=== PATIENT | female | born 1990 | race Caucasian/White ===

== ENCOUNTER 2017-07-03 01:29 | Outpatient (CLI) | payer BC ==
[~2017-07-03] VITALS: Ht 157.5 cm; Wt 79.4 kg
[~2017-07-03 01:29] MED LIST: CYCL10TA45 GT; FLUO40CA PO
[2017-07-03 01:40] VITALS: BP 155/87
[2017-07-03] MEDS ORDERED: PREN-142 PO (01:45)
[2017-07-03] MEDS ORDERED: D5 LR IV SOLUTION 1,000 ML IV ONE (02:00)
[2017-07-03] MEDS ORDERED: ONDANSETRON 4 MG/2 ML (SDV) Z0FRAN IVP ONE (02:15)
[2017-07-03 04:14] VITALS: BP 147/85
[2017-07-03] MEDS: D5 LR IV SOLUTION 1,000 ML IV SCH ×2 (04:29→11:10)
[2017-07-03 04:54] LABS: BASOPHILS % (AUTO) 0 % (0-10); EOSINOPHILS # (AUTO) 0.1 10^3/uL (0.0-0.3); EOSINOPHILS % (AUTO) 0 % (0-10); LYMPHOCYTES # (AUTO) 2.6 X 10^3 (1.0-4.0); LYMPHOCYTES % (AUTO) 15 % (12-44); MEAN CORPUSCULAR HEMOGLOBIN 25 PG (25-34); MEAN CORPUSCULAR HGB CONC 33 G/DL (32-36); MEAN CORPUSCULAR VOLUME 76 FL (80-99); MEAN PLATELET VOLUME 9.9 FL (7.4-10.4); MONOCYTES # (AUTO) 1.2 X 10^3 (0.0-1.0); MONOCYTES % (AUTO) 7 % (0-12); NEUTROPHILS # (AUTO) 13.4 X 10^3 (1.8-7.8); NEUTROPHILS % (AUTO) 77 % (42-75); PLATELET COUNT 346 10^3/uL (130-400); RED BLOOD COUNT 4.04 10^6/uL (4.35-5.85); RED CELL DISTRIBUTION WIDTH 13.9 % (10.0-14.5); WHITE BLOOD COUNT 17.3 10^3/uL (4.3-11.0)
[2017-07-03 05:13] LABS: ALANINE AMINOTRANSFERASE 18 U/L (0-55); ALBUMIN 3.3 GM/DL (3.2-4.5); ANION GAP 11 MMOL/L (5-14); ASPARTATE AMINO TRANSFERASE 19 U/L (5-34); BILIRUBIN,TOTAL 0.3 MG/DL (0.1-1.0); BLOOD UREA NITROGEN 5 MG/DL (7-18); BUN/CREATININE RATIO 8; CALCIUM 10.1 MG/DL (8.5-10.1); CARBON DIOXIDE 20 MMOL/L (21-32); CHLORIDE 108 MMOL/L (98-107); CREATININE SERUM 0.63 MG/DL (0.60-1.30); GFR ESTIMATED > 60; GLUCOSE 89 MG/DL (70-105); LACTATE DEHYDROGENASE 148 U/L (125-220); POTASSIUM 3.3 MMOL/L (3.6-5.0); SODIUM 139 MMOL/L (135-145); TOTAL PROTEIN 6.2 GM/DL (6.4-8.2); URIC ACID 4.4 MG/DL (2.6-7.2)
--- NOTE | 2017-07-03 07:42 | History & Physical ---
History and Physical Date Seen by Provider: Jul 03, 2017 Time Seen by Provider: 07:32 this patient is a 27-year-old A1 1 white female with a due date of September 04, 2017 putting her right at 31 weeks gestation. She presented with complaint of regular frequent contractions and pelvic pain and pressure nausea and vomiting. She was found be mariola about every 2 minutes although so far her cervix has not demonstrated any progressive change. She denies rupture membranes or bleeding she's had no other problems with this . Allergies are to Ambien which causes hallucinations Medications are vitamins Zyrtec and Percocet when necessary which was recently prescribed due to pelvic pain Medical social surgical and obstetric histories are per the antepartum record HEENT exam is normal Neck is supple no lymphadenopathy no thyromegaly Abdomen is gravid soft nontender nondistended. Suprapubic area is slightly tender on palpation. There is no guarding rebound or rigidity extremities show no clubbing cyanosis or edema. There is no Homans sign pelvic exam per the nurse shows a cervix that is thick and closed and no change on serial exams monitor initially was shown 45 to 60 second contractions every 2 minutes. Currently the monitor shows contractions about every 4-8 minutes the patient feels only occasionally. Vital Signs Date Time Temp Pulse Resp B/P (MAP) Pulse Ox O2 Delivery O2 Flow Rate FiO2 07/03/17 04:14 86 18 147/85 Room Air 07/03/17 01:40 98.7 113 20 155/87 Room Air lab work is as follows Laboratory Tests Test 07/03/17 04:48 Range/Units White Blood Count 17.3 H 4.3-11.0 10^3/uL Red Blood Count 4.04 L 4.35-5.85 10^6/uL Hemoglobin 10.0 L 11.5-16.0 G/DL Hematocrit 31 L 35-52 % Mean Corpuscular Volume 76 L 80-99 FL Mean Corpuscular Hemoglobin 25 25-34 PG Mean Corpuscular Hemoglobin Concent 33 32-36 G/DL Red Cell Distribution Width 13.9 10.0-14.5 % Platelet Count 346 130-400 10^3/uL Mean Platelet Volume 9.9 7.4-10.4 FL Neutrophils (%) (Auto) 77 H 42-75 % Lymphocytes (%) (Auto) 15 12-44 % Monocytes (%) (Auto) 7 0-12 % Eosinophils (%) (Auto) 0 0-10 % Basophils (%) (Auto) 0 0-10 % Neutrophils # (Auto) 13.4 H 1.8-7.8 X 10^3 Lymphocytes # (Auto) 2.6 1.0-4.0 X 10^3 Monocytes # (Auto) 1.2 H 0.0-1.0 X 10^3 Eosinophils # (Auto) 0.1 0.0-0.3 10^3/uL Basophils # (Auto) 0.0 0.0-0.1 10^3/uL Sodium Level 139 135-145 MMOL/L Potassium Level 3.3 L 3.6-5.0 MMOL/L Chloride Level 108 H 98-107 MMOL/L Carbon Dioxide Level 20 L 21-32 MMOL/L Anion Gap 11 5-14 MMOL/L Blood Urea Nitrogen 5 L 7-18 MG/DL Creatinine 0.63 0.60-1.30 MG/DL Estimat Glomerular Filtration Rate > 60 BUN/Creatinine Ratio 8 Glucose Level 89 70-105 MG/DL Uric Acid 4.4 2.6-7.2 MG/DL Calcium Level 10.1 8.5-10.1 MG/DL Total Bilirubin 0.3 0.1-1.0 MG/DL Aspartate Amino Transf (AST/SGOT) 19 5-34 U/L Alanine Aminotransferase (ALT/SGPT) 18 0-55 U/L Alkaline Phosphatase 91 40-136 U/L Lactate Dehydrogenase 148 125-220 U/L Total Protein 6.2 L 6.4-8.2 GM/DL Albumin 3.3 3.2-4.5 GM/DL Laboratory Tests 07/03/17 04:48 assessment and plan 31 weeks gestation with labor and leukocytosis. blood pressures have been slightly elevated, however her lab work is essentially reassuring. We will obtain a urine protein creatinine ratio. This patient's presentation is consistent with a likely viral GI syndrome. She has been improving with hydration and time. her contractions have begun easing and spacing out. Her appetite has returned. We will allow her to Eat and drink and continue the IV fluids. with continued improvement and continued resolution of her contractions we will plan on discharge home with follow-up in clinic - however if her contractions persist for her nausea persists then we will continue observation. Patient has had a previous and has been having increasing pain at the pubis. It is likely is normal physiology however there is concern for problems with uterine and/or abdominal wall scar close attention is warranted. we will obtain an ultrasound to evaluate the and the integrity of the uterus labor Allergies and Home Medications Allergies Coded Allergies: zolpidem tartrate (Verified Allergy, Intermediate, 03/19/13) adhesive (Verified Allergy, Unknown, 01/20/08) Home Medications Vit No.124/Iron/FA 1 Each Tablet, 1 EACH PO DAILY, (Reported) CONNER FORTUNE MD Jul 03, 2017 7:42 am
[2017-07-03 09:00] VITALS: BP 140/80
[2017-07-03 09:14] LABS: BILIRUBIN,URINE NEGATIVE (NEGATIVE); KETONES,URINE NEGATIVE (NEGATIVE); LEUKOCYTE ESTERASE ,URINE NEGATIVE (NEGATIVE); NITRITE,URINE NEGATIVE (NEGATIVE); PH,URINE 8 (5-9); PROTEIN,URINE NEGATIVE (NEGATIVE); UROBILINOGEN,URINE NORMAL (NORMAL)
[2017-07-03] MEDS ORDERED: INDOMETHACIN 25 MG (INDOCIN) CAP PO NR (09:15)
[2017-07-03 09:25] LABS: SQUAMOUS EPITHELIAL CELL,UR 0-2 /HPF
--- NOTE | 2017-07-03 11:10 | Diagnostic Imaging Report ---
OB ultrasound. INDICATION: Pain and contractions. Check placental location and previous uterine scar. FINDINGS: heart rate is 136 beats per minutes. presentation is cephalic. Total NIDIA is 16. The placenta is fundal. The uterine scar is not visible on this exam. No placenta previa. Total biophysical profile score is 8 out of 8. IMPRESSION: Total biophysical profile score is 8 out of 8. Dictated by: Dictated on workstation # [id number]
--- NOTE | 2017-07-04 15:03 | Physician Query-Final Dx ---
RONDA ALEJANDRA 07/04/17 1503: Clinic Account Progress/Dx Physician Query: Please give diagnosis Date of Service Jul 03, 2017 at 01:29 CONNER FORTUNE MD 07/05/17 0742: Clinic Account Progress/Dx DIAGNOSIS: Diagnosis false labor RONDA ALEJANDRA Jul 04, 2017 15:03 CONNER FORTUNE MD Jul 05, 2017 07:42
== END 2017-07-03 13:05 | disposition home or self-care (01) ==
LOC: WSo 01:29 → LDRP 01:31 → 3RD 09:04 → WSo 13:05
PROVIDERS: ATTEND Obstetrics & Gynecology
DX: O47.03 False labor before 37 completed weeks of gestation, third trimester (principal); Z3A.31 31 weeks gestation of pregnancy
CPT/HCPCS: 36415; 76819; 80053; 81000; 82570; 83615; 84156; 84550; 85025; 96361; 96374; 99214

== ENCOUNTER → 2017-07-16 | Outpatient (CLI) | payer BC ==
[~2017-07-16] MED LIST changes: +PREN-142 PO
== END ==
LOC: LABNPT 08:45
PROVIDERS: ATTEND Obstetrics & Gynecology
DX: O28.8 Other abnormal findings on antenatal screening of mother (principal); Z3A.00 Weeks of gestation of pregnancy not specified
CPT/HCPCS: 82570; 84156

== ENCOUNTER → 2017-08-01 | Outpatient (CLI) | payer BC, MEDICAID ==
[~2017-08-01] MED LIST changes: +OXYC-202 PO; +PNV11TAB5 PO
[2017-08-01 09:36] LABS: PROTEIN/CREATININE RATIO 0.21
== END ==
LOC: LABNPT 09:12
PROVIDERS: ATTEND Obstetrics & Gynecology
DX: O28.8 Other abnormal findings on antenatal screening of mother (principal)
CPT/HCPCS: 82570; 84156

== ENCOUNTER 2017-08-07 10:16 | Inpatient (IN) | payer BC, MEDICAID ==
[2017-08-07] VITALS (7 sets, daily range): BP systolic 135–147; BP diastolic 76–98
[~2017-08-07] VITALS: Ht 157.5 cm; Wt 82.7 kg
[~2017-08-07 10:16] MED LIST changes: +CITRIC ACID/SOB CIT (BICITRA) 30 ML UDC ONE; +FAMOTIDINE 20MG/2ML IV (PEPCID) ONE; +LACTATED RINGERS 1,000 ML IV ONE; +METOCLOPRAMIDE INJ 10 MG/2 ML (REGLAN) ONE; -PNV11TAB5 PO; +ceFAZolin 2 GM/50 ML NS 50 ML ONE; +metroNIDAZOLE 500MG/100ML IVPB 100 ML ONE
[2017-08-07] MEDS ORDERED: LACTATED RINGERS 1,000 ML IV PRN (10:44)
[2017-08-07] MEDS ORDERED: METOCLOPRAMIDE INJ 10 MG/2 ML (REGLAN) IV ONE (10:45)
[2017-08-07] MEDS ORDERED: CATHETER FLUSH 10 ML SYR IV PRN (10:45)
[2017-08-07] MEDS ORDERED: CITRIC ACID/SOB CIT (BICITRA) 30 ML UDC PO ONE (10:45)
[2017-08-07] MEDS ORDERED: FAMOTIDINE 20MG/2ML IV (PEPCID) IV ONE (10:45)
[2017-08-07 10:50] LABS: BASOPHILS % (AUTO) 0 % (0-10); EOSINOPHILS # (AUTO) 0.1 10^3/uL (0.0-0.3); EOSINOPHILS % (AUTO) 1 % (0-10); LYMPHOCYTES # (AUTO) 2.2 X 10^3 (1.0-4.0); LYMPHOCYTES % (AUTO) 19 % (12-44); MEAN CORPUSCULAR HEMOGLOBIN 22 PG (25-34); MEAN CORPUSCULAR HGB CONC 32 G/DL (32-36); MEAN CORPUSCULAR VOLUME 70 FL (80-99); MEAN PLATELET VOLUME 10.2 FL (7.4-10.4); MONOCYTES # (AUTO) 0.9 X 10^3 (0.0-1.0); MONOCYTES % (AUTO) 8 % (0-12); NEUTROPHILS # (AUTO) 8.7 X 10^3 (1.8-7.8); NEUTROPHILS % (AUTO) 73 % (42-75); PLATELET COUNT 356 10^3/uL (130-400); RED CELL DISTRIBUTION WIDTH 15.7 % (10.0-14.5)
[2017-08-07] MEDS ORDERED: PNV11TAB5 PO (11:00)
[2017-08-07 11:01] LABS: ALANINE AMINOTRANSFERASE 14 U/L (0-55); ALBUMIN 3.5 GM/DL (3.2-4.5); ANION GAP 10 MMOL/L (5-14); ASPARTATE AMINO TRANSFERASE 19 U/L (5-34); BILIRUBIN,TOTAL 0.4 MG/DL (0.1-1.0); BLOOD UREA NITROGEN 5 MG/DL (7-18); BUN/CREATININE RATIO 8; CALCIUM 9.8 MG/DL (8.5-10.1); CARBON DIOXIDE 19 MMOL/L (21-32); CHLORIDE 107 MMOL/L (98-107); GFR ESTIMATED > 60; GLUCOSE 76 MG/DL (70-105); LACTATE DEHYDROGENASE 178 U/L (125-220); POTASSIUM 3.6 MMOL/L (3.6-5.0); SODIUM 136 MMOL/L (135-145); TOTAL PROTEIN 6.5 GM/DL (6.4-8.2)
[2017-08-07] MEDS ORDERED: DEXAMETHASONE 10 MG/ML (DECADRON) 1 ML VIAL ONE (11:02)
[2017-08-07] MEDS ORDERED: ONDANSETRON 4 MG/2 ML (SDV) Z0FRAN ONE (11:02)
[2017-08-07] MEDS ORDERED: OXYTOCIN/NORMAL SALINE 500 ML IV ONE ×2 (11:02→12:31)
[2017-08-07 11:05] LABS: PROTEIN/CREATININE RATIO 0.17
[2017-08-07] MEDS ORDERED: fentaNYL INJECTION 100 MCG/2 ML AMP ONE (11:36)
[2017-08-07] MEDS ORDERED: morphine PF (DURAMORPH) 10 MG/10 ML AMP ONE (11:36)
[2017-08-07] MEDS ORDERED: OXYTOCIN/NORMAL SALINE 500 ML IV SCH (11:37)
--- NOTE | 2017-08-07 11:40 | Progress Note-Post Operative ---
Post-Operative Progess Note Surgeon (s)/Day Care Home Mother (s) Surgeon CONNER FORTUNE MD Day Care Home Mother: Leigh Duran RN Pre-Operative Diagnosis 36 week with labor and previous and PIH Post-Operative Diagnosis same Procedure & Operative Findings Date of Procedure 08/07/17 Procedure Performed/Findings repeat low transverse delivery - large uterine window Anesthesia Type spinal Estimated Blood Loss Estimated blood loss (mL): 450cc Specimens/Packing Specimens Removed placenta and umbilical cord Packing: none needed CONNER FORTUNE MD Aug 07, 2017 11:40
--- NOTE | 2017-08-07 11:44 | History & Physical ---
History and Physical Date Seen by Provider: Aug 07, 2017 Time Seen by Provider: 11:40 this patient is a 27-year-old A1 white female with an EDC of September 04, 2017 putting her now at 36 weeks gestation she presented to clinic for return OB today her blood pressure was 154/95 blood pressures have been progressively increasing over the last pelvic plus. He was found to be mariola regularly. Ultrasound U segment appeared to be paper thin. She was having a ring pulling and ripping sensation at the previous incision site she was sent to labor and delivery for evaluation and management. She has continued to contract about every 4 minutes or so. She complains of fairly sharp and persistent pain with the contractions at times she is writhing in pain. Her GBS culture was negative. She denies rupture membranes or bleeding. I Jesi test in my clinic was negative. She is prepared for repeat delivery. Allergies are to Ambien Medications are vitamins Past medical history, past surgical history, obstetric history, family history, and social histories are per the antepartum record HEENT exam is normal Neck is supple no lymphadenopathy no thyromegaly Abdomen gravid soft nontender nondistended Extreme show no clubbing cyanosis. There is no Homans sign. Gen. shows a cervix once immune dilated 50 percent effaced -1 station with vertex presentation. Lab work is as follows Laboratory Tests Test 08/07/17 10:15 08/07/17 10:30 Range/Units Urine Protein 8 6-12 MG/DL Urine Creatinine 47 30-125 MG/DL Urine Protein/Creatinine Ratio 0.17 White Blood Count 12.0 H 4.3-11.0 10^3/uL Red Blood Count 4.40 4.35-5.85 10^6/uL Hemoglobin 9.8 L 11.5-16.0 G/DL Hematocrit 31 L 35-52 % Mean Corpuscular Volume 70 L 80-99 FL Mean Corpuscular Hemoglobin 22 L 25-34 PG Mean Corpuscular Hemoglobin Concent 32 32-36 G/DL Red Cell Distribution Width 15.7 H 10.0-14.5 % Platelet Count 356 130-400 10^3/uL Mean Platelet Volume 10.2 7.4-10.4 FL Neutrophils (%) (Auto) 73 42-75 % Lymphocytes (%) (Auto) 19 12-44 % Monocytes (%) (Auto) 8 0-12 % Eosinophils (%) (Auto) 1 0-10 % Basophils (%) (Auto) 0 0-10 % Neutrophils # (Auto) 8.7 H 1.8-7.8 X 10^3 Lymphocytes # (Auto) 2.2 1.0-4.0 X 10^3 Monocytes # (Auto) 0.9 0.0-1.0 X 10^3 Eosinophils # (Auto) 0.1 0.0-0.3 10^3/uL Basophils # (Auto) 0.0 0.0-0.1 10^3/uL Sodium Level 136 135-145 MMOL/L Potassium Level 3.6 3.6-5.0 MMOL/L Chloride Level 107 98-107 MMOL/L Carbon Dioxide Level 19 L 21-32 MMOL/L Anion Gap 10 5-14 MMOL/L Blood Urea Nitrogen 5 L 7-18 MG/DL Creatinine 0.60 0.60-1.30 MG/DL Estimat Glomerular Filtration Rate > 60 BUN/Creatinine Ratio 8 Glucose Level 76 70-105 MG/DL Calcium Level 9.8 8.5-10.1 MG/DL Total Bilirubin 0.4 0.1-1.0 MG/DL Aspartate Amino Transf (AST/SGOT) 19 5-34 U/L Alanine Aminotransferase (ALT/SGPT) 14 0-55 U/L Alkaline Phosphatase 122 40-136 U/L Lactate Dehydrogenase 178 125-220 U/L Total Protein 6.5 6.4-8.2 GM/DL Albumin 3.5 3.2-4.5 GM/DL assessment and plan 36 week with previous and labor and PIH. Patient is to be taken now for repeat delivery. 36 week with PIH/ labor and previous Allergies and Home Medications Allergies Coded Allergies: zolpidem tartrate (Verified Allergy, Intermediate, 03/19/13) adhesive (Verified Allergy, Unknown, 01/20/08) Home Medications Oxycodone HCl/Acetaminophen 1 Each Tablet, 1 EACH PO Q6H PRN for PAIN-MILD TO MODERATE, (Reported) Dnm401/FA/Omega3/Dha/Fish Oil 1 Each Tab.chew, 2 EACH PO DAILY, (Reported) Clinical Quality Measures DVT/VTE Risk/Contraindication: Risk Factor Score Per Nursin RFS Level Per Nursing on Admit: 1=Low/No VTE PPX DEVIKA,CONNER G MD Aug 07, 2017 11:44 am
[2017-08-07] MEDS ORDERED: PROMETHAZINE INJ 25 MG/ML (PHENERGAN) AMP IM PRN (11:45)
[2017-08-07] MEDS ORDERED: TETANUS,DIPTH,PERTUSS P/F (BOOSTRIX) 0.5 ML VIAL IM ONE (11:45)
[2017-08-07] MEDS ORDERED: MEASLES,MUMPS,RUBELLA 1 EA INJ SC ONE (11:45)
[2017-08-07] MEDS ORDERED: D5 LR IV SOLUTION 1,000 ML IV ONE (11:45)
[2017-08-07] MEDS ORDERED: MEPERIDINE (DEMEROL) INJ 100 MG/ML IM PRN (11:45)
[2017-08-07] MEDS ORDERED: oxyCODONE/APAP 10/325MG (PERCOCET 10) TABLET PO PRN (11:45)
[2017-08-07] MEDS ORDERED: ceFAZolin 2 GM/50 ML NS 50 ML IV NR (12:00)
[2017-08-07] MEDS ORDERED: metroNIDAZOLE 500MG/100ML IVPB 100 ML IV NR (12:00)
[2017-08-07] MEDS ORDERED: KETOROLAC 30 MG/ML VIAL ONE (12:19)
[2017-08-07] MEDS ORDERED: PHENYLEPHRINE 100 MCG/ML 10 ML (ANESTHESIA) SYR ONE (12:29)
[2017-08-07] MEDS: KETOROLAC 30 MG/ML VIAL IVP SCH ×2 (12:30→18:28)
[2017-08-07] MEDS ORDERED: morphine PF (DURAMORPH) 10 MG/10 ML AMP INJ ONE (12:45)
[2017-08-07] MEDS ORDERED: NALOXONE 0.4 MG/ML 1 ML (NARCAN) VIAL IV PRN (12:45)
[2017-08-07] MEDS ORDERED: fentaNYL INJECTION 100 MCG/2 ML AMP INJ ONE (12:45)
[2017-08-07] MEDS: ONDANSETRON 4 MG/2 ML (SDV) Z0FRAN IV PRN ×2 (14:00→18:09)
[2017-08-07] MEDS ORDERED: ONDANSETRON 4 MG/2 ML (SDV) Z0FRAN IVP NR (18:30)
[2017-08-07] MEDS ORDERED: ONDANSETRON 4 MG/2 ML (SDV) Z0FRAN IVP PRN (18:30)
[2017-08-07] MEDS: DOCUSATE SODIUM 100 MG (COLACE) CAP PO SCH (20:14)
[2017-08-08] VITALS: BP 143/96
--- NOTE | 2017-08-08 01:07 | OPERATIVE REPORT ---
DATE OF SERVICE: 08/07/2017 PREOPERATIVE DIAGNOSES: A 36-week with labor, -induced hypertension and previous . POSTOPERATIVE DIAGNOSES: A 36-week with labor, -induced hypertension and previous with exceedingly large lower uterine segment, uterine window. OPERATIVE PROCEDURE: Repeat low transverse delivery of a viable female infant with Apgars of 7 and 9 at 1 and 5 minutes respectively. Weight is 6 pounds 6 ounces. Cord blood pH of 7.31 and a time of 12:20. OPERATIVE DESCRIPTION: With the patient in the supine position under satisfactory spinal anesthesia, she was prepped and draped in the usual fashion for abdominal surgery. Florez catheter was placed in the urinary bladder. A repeat Pfannenstiel incision made through the skin with a scalpel by removing the patient's previous Pfannenstiel incisional scar. The abdomen was entered in the usual manner. Bladder retractor was placed in position. A clean scalpel used to make a 2 cm hysterotomy incision in the midst of this large uterine window that was approximately 5 to 7 cm vertically and entirely across the lower uterine segment comprised only of membranes and peritoneum and in some areas the peritoneum had begun to separate and the membranes were bulging through already. Clear fluid was released on hysterotomy, the incision was extended bluntly. Olson forceps were applied to facilitate delivery of a vigorous viable female with stats as noted above. The was bulb suctioned on delivery of the head and again on completion of delivery. The umbilical cord was doubly clamped and infant passed to Dr. Portillo, job cost estimator in attendance for delivery. Cord bloods were obtained. The placenta delivered spontaneously Ritter. It was normal with a 3-vessel cord. The uterus was exteriorized, the interior wiped clean with a wet laparotomy sponge. Uterine incision closed with a running lock suture of 2-0 Vicryl. Care was taken to get back to good muscle edges for reapproximation of the lower uterine segment. The uterus was now returned to abdominal cavity. All blood clot and debris removed from the abdominal cavity. With sponge and needle counts correct, hemostasis assured. The anterior parietal peritoneum was closed with a running suture of 2-0 Vicryl. Rectus muscles were closed with that suture as well. The rectus fascia was closed with 2-0 Vicryl, subcutaneous tissue with 2-0 Vicryl and the skin was stapled. Sponge and needle counts were correct at the end of the procedure. Estimated blood loss for procedure was around 450 mL. The patient tolerated the procedure well and was transferred to recovery room in stable condition. The had been taken stable to the full term nursery under the care of Dr. Portillo. Job ID: [id number] DocumentID: [id number] Dictated Date: 08/07/2017 12:39:41 Geological Manager Date: 08/08/2017 01:07:21 Dictated By: CONNER FORTUNE MD
[2017-08-08] MEDS: HYDROcodone/APAP 5 MG/325 MG (LORTAB) TAB PO PRN ×4 (03:14→15:45)
[2017-08-08 04:00] VITALS: BP 139/101
[2017-08-08] MEDS: KETOROLAC 30 MG/ML VIAL IVP SCH ×2 (06:19)
--- NOTE | 2017-08-08 07:43 | Progress Note-Standard ---
Standard Progress Note Progress Notes/Assess & Plan Date Seen by Provider: Aug 08, 2017 Time Seen by Provider: 07:42 Progress/Assessment & Plan this patient is without complaint. She is ambulating, voiding, told feel well, has good pain control. Patient denies chest pain, denies shortness breath, denies nausea vomiting, and denies headache. Vital Signs Date Time Temp Pulse Resp B/P (MAP) Pulse Ox O2 Delivery O2 Flow Rate FiO2 08/08/17 04:00 99.6 100 18 139/101 100 Room Air 08/08/17 00:00 98.0 100 18 143/96 100 Room Air 08/07/17 20:14 98.3 95 18 136/95 100 Room Air 08/07/17 18:29 97.0 79 18 135/86 100 Room Air 08/07/17 14:31 97.0 79 18 135/86 100 Room Air 08/07/17 11:56 109 18 147/76 Room Air 08/07/17 11:30 96 18 139/85 Room Air 08/07/17 11:00 100 18 144/98 Room Air 08/07/17 10:19 99.2 103 18 139/92 Room Air vital signs are stable. Patient is afebrile. Blood pressures areAcceptable. The abdomen is benign. Extreme show no clubbing cyanosis. There is some pretibial pitting edema that is within normal limits. There is no Homans sign. assessment and plan postoperative day number 1 status post repeat at 36 weeks gestation patient and baby are doing well. Plan for routine convalescence care today and plan for discharge home tomorrow CONNER FORTUNE MD Aug 08, 2017 7:43 am
[2017-08-08] MEDS ORDERED: HYDR-3812 PO (07:45)
[2017-08-08] MEDS ORDERED: IBUP-1780 PO (07:45)
[2017-08-08] MEDS ORDERED: DOCU100C37 PO (07:45)
--- NOTE | 2017-08-08 07:46 | Discharge Instructions ---
Discharge Instructions Discharge Medications New, Converted or Re-Newed RX: RX on Chart Patient Instructions Patient Instructions: as directed Return to The Hospital For: as directed Activity & Diet Activity as Tolerated: No Orders-Post D/C & Referrals Follow Up Appt: RTC 1 week for incision check. Call to make follow up appt. for patient in 4 weeks. Wound Care: Remove zeinab, apply benzoin and steri strips. Activity Per routine post instructions. Diet as tolerated Patient may shower or tub bathe as desired. Continue home meds CONNER FORTUNE MD Aug 08, 2017 7:46 am
[2017-08-08] MEDS ORDERED: atarax PO (08:07)
[2017-08-08] MEDS ORDERED: hydrOXYzine (VISTARIL) 25 MG CAP PO PRN (08:15)
[2017-08-08] MEDS: DOCUSATE SODIUM 100 MG (COLACE) CAP PO SCH ×2 (08:52→21:47)
[2017-08-08 08:55] VITALS: BP 132/91
[2017-08-08] MEDS: IBUPROFEN 800 MG (MOTRIN) TAB PO SCH ×2 (11:49→17:53)
[2017-08-08 11:50] VITALS: BP 133/87
[2017-08-08 18:01] VITALS: BP 140/100
[2017-08-08] MEDS ORDERED: ONDANSETRON 8 MG (ZOFRAN) ORAL DISSOLVE TAB ONE (21:39)
[2017-08-08 21:45] VITALS: BP 133/86
[2017-08-08] MEDS ORDERED: ONDANSETRON 4 MG (ZOFRAN) ORAL DISSOLVE TAB PO PRN (21:45)
[2017-08-08] MEDS: oxyCODONE/APAP 10/325MG (PERCOCET 10) TABLET PO PRN (21:48)
[2017-08-09 00:25] VITALS: BP 148/98
[2017-08-09] MEDS: IBUPROFEN 800 MG (MOTRIN) TAB PO SCH ×2 (00:29→06:19)
[2017-08-09] MEDS: oxyCODONE/APAP 10/325MG (PERCOCET 10) TABLET PO PRN ×2 (02:04→07:35)
[2017-08-09 06:24] VITALS: BP 142/80
--- NOTE | 2017-08-09 06:45 | Progress Note-Standard ---
Standard Progress Note Progress Notes/Assess & Plan Date Seen by Provider: Aug 09, 2017 Time Seen by Provider: 06:44 Progress/Assessment & Plan this patient is without complaint. She is ambulating, voiding, told feel well, has good pain control. Patient denies chest pain, denies shortness breath, denies nausea vomiting, and denies headache. Vital Signs Date Time Temp Pulse Resp B/P (MAP) Pulse Ox O2 Delivery O2 Flow Rate FiO2 08/08/17 04:00 99.6 100 18 139/101 100 Room Air 08/08/17 00:00 98.0 100 18 143/96 100 Room Air 08/07/17 20:14 98.3 95 18 136/95 100 Room Air 08/07/17 18:29 97.0 79 18 135/86 100 Room Air 08/07/17 14:31 97.0 79 18 135/86 100 Room Air 08/07/17 11:56 109 18 147/76 Room Air 08/07/17 11:30 96 18 139/85 Room Air 08/07/17 11:00 100 18 144/98 Room Air 08/07/17 10:19 99.2 103 18 139/92 Room Air vital signs are stable. Patient is afebrile. Blood pressures areAcceptable. The abdomen is benign. Extreme show no clubbing cyanosis. There is some pretibial pitting edema that is within normal limits. There is no Homans sign. assessment and plan postoperative day number 1 status post repeat at 36 weeks gestation patient and baby are doing well. Plan for routine convalescence care today and plan for discharge home tomorrow August 09, 2017 Patient is without complaint. She is ambulating, voiding, tolerating by mouth well has good pain control. She is requesting discharge home. Patient denies chest pain, denies shortness breath, denies nausea vomiting, has headache. Vital Signs Date Time Temp Pulse Resp B/P (MAP) Pulse Ox O2 Delivery O2 Flow Rate FiO2 08/09/17 06:24 99.7 106 18 142/80 99 Room Air 08/09/17 00:25 98.6 90 18 148/98 100 Room Air 08/08/17 21:45 98.8 103 18 133/86 100 Room Air 08/08/17 18:01 99.5 94 16 140/100 100 Room Air 08/08/17 11:50 98.2 102 14 133/87 100 Room Air 08/08/17 08:55 97.5 88 14 132/91 100 Room Air 08/08/17 08:55 100 Room Air vital signs are stable. Patient is afebrile. Her blood pressures are stable and acceptable. Fundus is firm below the umbilicus nontender. The surgical incision is clean dry and intact. Extreme show no clubbing cyanosis. There is no Homans sign. Assessment and plan / postoperative day number 2 doing well. Plan is for discharge home with follow-up in clinic. Final Diagnosis 36 weeks repeat delivery CONNER FORTUNE MD Aug 09, 2017 6:45 am
[2017-08-09] MEDS ORDERED: ONDA8TAB9 PO (06:56)
[2017-08-09] MEDS ORDERED: OXYC-202 PO (06:57)
[2017-08-09] MEDS ORDERED: HYDROCORTISONE 2.5% CREAM (ANUSOL-HC) 30 GM TOP SCH (09:00)
[2017-08-09] MEDS: DOCUSATE SODIUM 100 MG (COLACE) CAP PO SCH (09:27)
[2017-08-09 09:30] VITALS: BP 146/94
[2017-08-09] MEDS ORDERED: TETANUS,DIPTH,PERTUSS P/F (BOOSTRIX) 0.5 ML VIAL IM ONE (09:35)
== END 2017-08-09 12:35 | disposition home or self-care (01) | DRG 766 ==
LOC: LDRP 10:16
PROVIDERS: ADMIT Obstetrics & Gynecology; ATTEND Obstetrics & Gynecology
PROC: 10D00Z1 Extraction of Products of Conception, Low, Open Approach (ICD-10-PCS; principal; 2017-08-07 11:58)
DX: O13.4 Gestational [pregnancy-induced] hypertension without significant proteinuria, complicating childbirth (principal); O34.211 Maternal care for low transverse scar from previous cesarean delivery; O60.14X0 Preterm labor third trimester with preterm delivery third trimester, not applicable or unspecified; Z3A.36 36 weeks gestation of pregnancy; Z37.0 Single live birth; Z23 Encounter for immunization
CPT/HCPCS: 36415; 80053; 82570; 83615; 84156; 85025; 86850; 86900; 86901; 90715; 94664